=== PATIENT | female | born 1940 | race Caucasian/White ===

== ENCOUNTER 2018-03-21 14:31 | Emergency (ER) | payer OTHER ==
[2018-03-21 14:46] VITALS: BMI 29.3
--- NOTE | 2018-03-21 16:38 | PDOC ---
Attending Attestation - Resident Resident Name: Kemal Morrison - ED Attending Attestation I have performed the following: I have examined & evaluated the patient, The case was reviewed & discussed with the resident, I agree w/resident's findings & plan, Exceptions are as noted - HPI HPI: 03/21/18 16:38 77y F hx of htn, hl, on ASA, presents sp fall. 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 She denies any LOC headache, nausea, vomiting, vision changes, numbness, tingling, weakness. No associated chest pain, shortness of breath. GENERAL: The patient is awake, alert, and fully oriented, Nontoxic - in no acute distress. HEAD: Normocephalic, contusion on hte R parietal scalp, +[id number] laceration on R posterior scalp, no activ ebleeding, neg mstoid tendernes,s neg battles sign. EYES: extraocular movements intact, sclera anicteric, conjunctiva clear. ENT: Normal voice, Moist mucous membranes. NECK: Normal range of motion, supple LUNGS: Breath sounds equal, clear to auscultation bilaterally. No wheezes, no rhonchi, no rales. HEART: Regular rate and rhythm, normal S1 and S2 ABDOMEN: Soft, nontender, No guarding, no rebound. . No CVA tenderness EXTREMITIES: Normal range of motion, no edema. No clubbing or cyanosis. No cords, erythema, or tenderness. NEUROLOGICAL: No facial assymetry, Normal speech, PSYCH: Normal mood, normal affect. SKIN: Warm, Dry, normal turgor, Back: No midline tenderness to the cervical, thoracic or lumbar spine Musculoskelatal: FROM of b/l shoulders, elbows, wrist. FROM of hips, knees, ankles - No signs of ecchymosis, erythema, or crepitus noted on palpation extremities, chest wall, clavicals, ribs, back. 77-year-old female history of hypertension, lipidemia presenting status post mechanical fall. We'll obtain blood work to rule out anemia, metabolic derangements, UA to rule out UTI as cause of the fall. Will obtain CT head and C-spine His laceration with one staple will update tetanus
[2018-03-21] MEDS ORDERED: DIPHTH,PERTUSS(ACELL),TET VAC 0.5 ML VIAL IM ONE (16:44)
[2018-03-21 16:51] LABS: ALBUMIN 4.4 g/dl (3.4-5.0); ALK PHOS 81 U/L (45-117); ANION GAP 10 MMOL/L (8-16); BLOOD UREA NITROGEN 28 mg/dL (7-18); CHLORIDE 102 mmol/L (98-107); CO2 25 mmol/L (21-32); CREATININE 0.8 mg/dL (0.55-1.3); GLUCOSE,RANDOM 104 mg/dL (74-106); POTASSIUM 3.6 mmol/L (3.5-5.1); SGOT/AST 20 U/L (15-37); SGPT/ALT 25 U/L (13-61); SODIUM 136 mmol/L (136-145); TOT PROT 7.1 g/dl (6.4-8.2)
[2018-03-21 17:12] LABS: URINE APPEARANCE CLEAR; URINE BILIRUBIN NEGATIVE (<2.0 mg/dL); URINE COLOR LTYELLOW; URINE GLUCOSE (UA) NEGATIVE (NEGATIVE); URINE KETONE NEGATIVE (NEGATIVE); URINE LEUK ESTERASE NEGATIVE (NEGATIVE); URINE NITRITE NEGATIVE (NEGATIVE); URINE PROTEIN NEGATIVE (NEGATIVE); URINE UROBILINOGEN NEGATIVE mg/dL (0.2-1.0)
--- NOTE | 2018-03-21 17:36 | PDOC ---
History of Present Illness - General Chief Complaint: Injury Stated Complaint: FALL Time Seen by Provider: 03/21/18 15:10 History Source: Patient Exam Limitations: No Limitations - History of Present Illness Initial Comments: 03/21/18 17:30 77 yo female pmh of HTN and HLD presents to the ED after a fall around 2 pm today. 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 Pt is not on blood thinners and did not have LOC. Admits to blood on back of head with some swelling and pain that has improved over time without need for medication. Denies changes in vision, N/V, CP, SOB, changes in speech, one sided weakness or numbness. Also denies CP, palpitations or dizziness prior to the fall and does not have hx of falls. Past History - Past Medical History Allergies/Adverse Reactions: Allergies Allergy/AdvReac Type Severity Reaction Status Date / Time No Known Allergies Allergy Verified 03/21/18 14:46 Home Medications: Ambulatory Orders Unobtainable 03/21/18 COPD: No CHF: No HTN: Yes Hypercholesterolemia: Yes - Suicide/Smoking/Psychosocial Hx Smoking History: Never smoked Have you smoked in the past 12 months: No Information on smoking cessation initiated: No Hx Alcohol Use: No Drug/Substance Use Hx: No Substance Use Type: None Review of Systems - Review of Systems Constitutional: No: Chills, Fever HEENTM: Yes: Other (right occipital pain and swelling). No: Blurred Vision Respiratory: No: Shortness of Breath Cardiac (ROS): No: Chest Pain, Palpitations, Syncope ABD/GI: No: Constipated, Diarrhea, Nausea, Vomiting : No: Burning, Dysuria Musculoskeletal: No: Back Pain, Muscle Weakness Neurological: No: Headache, Numbness, Paresthesia, Weakness, Unsteady Gait, Ataxia, Dizziness *Physical Exam - Vital Signs Last Vital Signs Temp Pulse Resp BP Pulse Ox 98.0 F 81 16 158/58 L 97 03/21/18 14:37 03/21/18 14:37 03/21/18 14:37 03/21/18 14:37 03/21/18 14:37 - Physical Exam General Appearance: Yes: Nourished, Appropriately Dressed. No: Apparent Distress HEENT: positive: EOMI, JEAN, Other (hematoma to right occipital region. Small 1 cm superficial lesion with hemostasis to right occipital region). negative: Lesions Neck: positive: Supple Respiratory/Chest: positive: Lungs Clear, Normal Breath Sounds Cardiovascular: positive: Regular Rhythm, Regular Rate, S1, S2. negative: Edema , JVD, Murmur Vascular Pulses: Dorsalis-Pedis (R): 3+, Doralis-Pedis (L): 3+ Gastrointestinal/Abdominal: positive: Normal Bowel Sounds. negative: Guarding, Rebound, Tenderness Musculoskeletal: positive: Normal Inspection. negative: Muscle Spasm Extremity: positive: Normal Capillary Refill Integumentary: positive: Normal Color, Dry, Warm. negative: Cyanotic, Ecchymosis, Bruising Neurologic: positive: slunk skinner II-XII NML intact, Fully Oriented, Alert, Normal Mood/ Affect, Normal Response, Motor Strength 5/5, Finger to Nose (normal). negative : Facial Droop, Numbness, Sensory Deficit, Confused, Disoriented Procedures - Laceration/Wound Repair Right Posterior Head Wound Length: to 2.5 cm Wound's Depth, Shape: superficial, linear Irrigated w/ Saline: Yes Betadine Prep: No Wound Debrided: moderate Wound Repaired With: Marc Suture Size/Type: other (2 marc) ED Treatment Course - LABORATORY CBC & Chemistry Diagram: 03/21/18 16:10 03/21/18 16:10 - ADDITIONAL ORDERS Additional order review: Laboratory Results 03/21/18 03/21/18 16:55 16:10 Sodium 136 Potassium 3.6 Chloride 102 Carbon Dioxide 25 Anion Gap 10 BUN 28 H Creatinine 0.8 Creat Clearance w eGFR > 60 Random Glucose 104 Calcium 9.0 Total Bilirubin 1.0 AST 20 ALT 25 Alkaline Phosphatase 81 Total Protein 7.1 Albumin 4.4 Urine Color Ltyellow Urine Appearance Clear Urine pH 6.0 Ur Specific Hammond 1.015 Urine Protein Negative Urine Glucose (UA) Negative Urine Ketones Negative Urine Blood Negative Urine Nitrite Negative Urine Bilirubin Negative Urine Urobilinogen Negative Ur Leukocyte Esterase Negative - RADIOLOGY Radiology Studies Ordered: Category Date Time Status CERVICAL SPINE CT W/O CONTR [CT] Stat CT Scan 03/21/18 15:[address] WITHOUT CONTRAST [CT] Stat CT Scan 03/21/18 15:46 Ordered Medical Decision Making - Medical Decision Making 03/21/18 19:12 77 yo female presents to ED after fall and hit head, no LOC or blood thinners. Patient has no concerning neurological s/s on hpi or exam Head and C spine CT ordered to r/o bleed or fracture CBC, CMP normal no metabolic abnormalities or anemia EKG sinus james Ua negative for infection Head and C spine CT negative for acute pathology Pt denies need for pain medication at this time and is resting comfortably without complains. Pt is able to ambulate Will send home with strict return precautions and follow up with PCP at [facility] *DC/Admit/Observation/Transfer Diagnosis at time of Disposition: Fall Qualifiers: Encounter type: initial encounter Qualified Code(s): W19.XXXA - Unspecified fall, initial encounter - Discharge Dispostion Disposition: HOME Condition at time of disposition: Stable Decision to Admit order: No - Referrals Referrals: Dallin Daniels [Primary Care Provider] - - Patient Instructions Printed Discharge Instructions: How to Prevent Falls Additional Instructions: Please make appointment and follow up with your Primary care doctor to discuss your visit. Have your 2 marc removed 7-10 days from now. Keep bandages on head for the next 24 hours and keep wound dry. Take over the counter tylenol for pain relief as needed every 4-6 hours. Please return to the emergency room for new or worsening symptoms including but not limited to: severe head aches, nausea, vomiting, changes in speech,one sided weakness or numbness. Thank you - Post Discharge Activity
[2018-03-21 18:14] LABS: BASO % 0.2 % (0-2.0); EOS % 0.8 % (0-4.5); HEMOGLOBIN 13.2 GM/dL (10.7-15.3); MCH 31.7 pg (25.7-33.7); MCHC 34.8 g/dl (32.0-36.0); MONO % 7.1 % (3.8-10.2); NEUT % 77.9 % (42.8-82.8); PLATELET COUNT 232 K/MM3 (134-434); RBC 4.17 M/mm3 (3.60-5.2); RDW 14.3 % (11.6-15.6); WHITE BLOOD COUNT 9.7 K/mm3 (4.0-10.0)
[2018-03-21 18:58] VITALS: BP 145/74; PULSE 87; TEMP 98.6
--- NOTE | 2018-03-22 11:35 | EKG ---
Test Reason : Blood Pressure : / mmHG Vent. Rate : 056 BPM Atrial Rate : 056 BPM P-R Int : 182 ms QRS Dur : 088 ms QT Int : 454 ms P-R-T Axes : 062 -10 070 degrees QTc Int : 438 ms SINUS BRADYCARDIA OTHERWISE NORMAL ECG NO PREVIOUS ECGS AVAILABLE Confirmed by Keaton Torres MD ([id number]) on 03/22/2018 11:34:58 AM Referred By: Confirmed By:Keaton Torres MD
== END 2018-03-21 19:30 | disposition home or self-care (01) ==
LOC: JER 14:31
PROC: 3E0234Z Introduction of Serum, Toxoid and Vaccine into Muscle, Percutaneous Approach (ICD-10-PCS; principal; 2018-03-21)
PROC: 0HQ0XZZ Repair Scalp Skin, External Approach (ICD-10-PCS; 2018-03-21)
DX: S01.01XA Laceration without foreign body of scalp, initial encounter (principal); S00.83XA Contusion of other part of head, initial encounter; W10.8XXA Fall (on) (from) other stairs and steps, initial encounter; Y93.89 Activity, other specified; Y92.242 Post office as the place of occurrence of the external cause; Y99.8 Other external cause status; I10 Essential (primary) hypertension; E78.00 Pure hypercholesterolemia, unspecified; Z79.82 Long term (current) use of aspirin
CPT/HCPCS: 12001; 36415; 70450-TC; 72125-TC; 80053; 81003; 85025; 87086; 90471; 90715; 93005; 93010; 99283-25